=== PATIENT | male | born 1930 | race Caucasian/White ===

== ENCOUNTER 2019-09-30 11:00 | Emergency (ER) | payer OTHER ==
[2019-09-30] MEDS ORDERED: TETANUS & DIPHTHERIA TOX,ADULT 0.5 ML VIAL ONE (12:04)
[2019-09-30] MEDS ORDERED: HYDROCODONE/APAP 5/325 MG TAB ONE (12:04)
[2019-09-30] MEDS ORDERED: LIDOCAINE 1% 20 ML MDV ONE (13:14)
--- NOTE | 2019-09-30 13:14 | RAD REPORT ---
EXAM DESCRIPTION: RAD - Knee Left 3 View - 09/30/2019 12:36 pm CLINICAL HISTORY: Left knee pain status post injury FINDINGS: No fracture or dislocation is seen. Bones are osteoporotic. Anterior laceration. Small densities anterior to patella may represent foreign bodies
--- NOTE | 2019-09-30 15:04 | ER ---
Nurse's Notes [facility] Name: Lauri Rajan Age: 88 yrs Sex: Male : 1930 Arrival Date: 09/30/2019 Time: 11:03 Bed 19 Private MD: Diagnosis: Laceration of the knee Presentation: 09/29 11:19 Chief complaint: Patient states: I went to urgent care and they told me it was down to tw2 the bone so I had to come here, a limb hit my saw and then shoved the saw into my LEFT knee, it happened about an 1.5 to 2 hours ago. Coronavirus screen: Client denies travel out of the [place] in the last 14 days. Coronavirus screen: At this time, the client does not indicate any symptoms associated with coronavirus-19. Ebola Screen: Patient denies travel to an Ebola-affected area in the 21 days before illness onset. Complicating Factors: There are no complicating factors for this patient. Initial Sepsis Screen: Does the patient meet any 2 criteria? No. Patient's initial sepsis screen is negative. Does the patient have a suspected source of infection? No. Patient's initial sepsis screen is negative. Risk Assessment: Do you want to hurt yourself or someone else? Patient reports no desire to harm self or others. Onset of symptoms was September 30, 2019 at 09:30. 11:19 Method Of Arrival: Ambulatory tw2 11:19 Acuity: JACQUE 4 tw2 Triage Assessment: 11:24 General: Appears in no apparent distress. obese, well groomed, Behavior is calm, tw2 cooperative, appropriate for age. Pain: Complains of pain in left leg. Musculoskeletal: Circulation, motion, and sensation intact. Range of motion: intact in all extremities. Injury Description: Laceration sustained to left knee is clean, 0.5 to 2.5 cm long, bleeding moderately. Historical: - Allergies: 11:24 No Known Allergies; tw2 - Home Meds: 11:24 amlodipine 10 mg tab 1 tab once daily [Active]; omeprazole 40 mg Oral cpDR 1 cap once tw2 daily [Active]; - PMHx: 11:24 Hypertension; tw2 - PSHx: 11:24 Tonsillectomy; Appendectomy; tw2 - Immunization history:: Last tetanus immunization: unknown. - Social history:: Smoking status: Patient denies any tobacco usage or history of. Screenin:31 Abuse screen: Denies threats or abuse. Nutritional screening: No deficits noted. tw2 Tuberculosis screening: No symptoms or risk factors identified. Fall Risk None identified. Assessment: 11:10 General: Appears in no apparent distress. well groomed, Behavior is calm, cooperative, tw2 appropriate for age. Neuro: Level of Consciousness is awake, alert, obeys commands, Oriented to person, place, time, situation. Cardiovascular: Patient's skin is warm and dry. Respiratory: Airway is patent Respiratory effort is even, unlabored, Respiratory pattern is regular, symmetrical. GI: No signs and/or symptoms were reported involving the gastrointestinal system. : No signs and/or symptoms were reported regarding the genitourinary system. EENT: No signs and/or symptoms were reported regarding the EENT system. Derm: No signs and/or symptoms reported regarding the dermatologic system. Musculoskeletal: Range of motion: intact in all extremities. Injury Description:. 11:25 Reassessment: provider at bedside at this time. Injury Description: Laceration tw2 sustained to left knee. 12:08 Reassessment: Patient appears in no apparent distress at this time. No changes from tw2 previously documented assessment. Patient and/or family updated on plan of care and expected duration. Pain level reassessed. Patient is alert, oriented x 3, equal unlabored respirations, skin warm/dry/pink. 13:10 Reassessment: Patient appears in no apparent distress at this time. No changes from tw2 previously documented assessment. Patient and/or family updated on plan of care and expected duration. Pain level reassessed. Patient is alert, oriented x 3, equal unlabored respirations, skin warm/dry/pink. 14:03 Reassessment: Patient appears in no apparent distress at this time. No changes from tw2 previously documented assessment. Patient and/or family updated on plan of care and expected duration. Pain level reassessed. Patient is alert, oriented x 3, equal unlabored respirations, skin warm/dry/pink. 14:24 Reassessment: provider at bedside at this time. tw2 15:26 Reassessment: Patient appears in no apparent distress at this time. No changes from tw2 previously documented assessment. Patient and/or family updated on plan of care and expected duration. Pain level reassessed. Patient is alert, oriented x 3, equal unlabored respirations, skin warm/dry/pink. Vital Signs: 11:19 BP 142 / 66; Pulse 63; Resp 17; Temp 98.0(O); Pulse Ox 97% on R/A; Weight 78.02 kg (R); tw2 Height 5 ft. 11 in. (180.34 cm); Pain 1/10; 12:08 BP 123 / 54; Pulse 63; Resp 17; Pulse Ox 95% on R/A; tw2 13:10 BP 117 / 56; Pulse 62; Resp 17; Pulse Ox 96% on R/A; tw2 14:03 BP 118 / 52; Pulse 60; Resp 17; Pulse Ox 95% on R/A; tw2 15:25 BP 131 / 62; Pulse 64; Resp 17; Pulse Ox 98% on R/A; tw2 11:19 Body Mass Index 23.99 (78.02 kg, 180.34 cm) tw2 ED Course: 11:03 Patient arrived in ED. ds1 11:08 Javier May PA is PHCP. jmm 11:08 Lupillo Hager MD is Attending Physician. jmm 11:08 Bed in low position. Call light in reach. tw2 11:12 Lona Bonner, SAMANTHA is Primary Nurse. tw2 11:23 Triage completed. tw2 11:25 Arm band placed on. tw2 12:08 Pulse ox on. NIBP on. Warm blanket given. tw2 12:36 Knee Left 3 View XRAY In Process Unspecified. EDMS 15:21 Gucci Andres MD is Referral Physician. jmm 15:26 No provider procedures requiring assistance completed. Patient did not have IV access tw2 during this emergency room visit. Dressings: ABD pad X 1; left knee 4X4s with cling and tape to secure, CMS intact, knee immobilizer paced, pt tolerated well, cms intact. Administered Medications: 12:00 Drug: Tetanus-Diphtheria Toxoid Adult 0.5 ml {Clinical Informatics Manager: [employer]. Exp: tw04/16/2022. Lot #: [id number]. } Route: IM; Site: left deltoid; 13:09 Follow up: Response: No adverse reaction tw2 12:00 Drug: [place] 5 mg-325 mg 1 tabs Route: PO; tw2 13:14 Follow up: Response: No adverse reaction; Pain is decreased; RASS: Alert and Calm (0) tw2 14:25 Drug: Lidocaine (1 %) 20 ml {Note: by ADRIEN Paige.} Volume: 20 ml; Route: Infiltration; tw2 15:10 Drug: Bactrim (160 mg-800 mg (DS) 1 tablet Route: PO; tw2 15:28 Follow up: Response: No adverse reaction tw2 15:10 Drug: Augmentin 875 mg Route: PO; tw2 15:27 Follow up: Response: No adverse reaction tw2 Outcome: 15:03 Discharge ordered by MD. [facility] 15: Discharged to home via ambulance. tw2 15: Condition: stable 15:29 Discharge instructions given to patient, Instructed on discharge instructions, follow up and referral plans. no drinking with medication, no driving heavy equipment, medication usage, safety practices, wound care, knee immoblizer and cms checks Demonstrated understanding of instructions, follow-up care, medications, Prescriptions given X 3. 15:29 Patient left the ED. tw2 Signatures: Dispatcher [employer] EDMS Javier May PA PA jmm Sanford, Demi ds1 Lona Bonner RN RN tw2 Corrections: (The following items were deleted from the chart) 11:31 11:19 Chief complaint: Patient states: I went to urgent care and they told me it was tw2 down to the bone so I had to come here, a limb hit my saw and then shoved into my LEFT knee, it happened about an 1.5 to 2 hours ago. tw2 14:03 Reassessment: Patient appears in no apparent distress at this time. No changes tw2 from previously documented assessment. Patient and/or family updated on plan of care and expected duration. Pain level reassessed. Patient is alert, oriented x 3, equal unlabored respirations, skin warm/dry/pink. tw2
--- NOTE | 2019-09-30 15:04 | EDPHYS ---
Physician Documentation [facility] Name: Lauri Rajan Age: 88 yrs Sex: Male : 1930 Arrival Date: 09/30/2019 Time: 11:03 Bed 19 Private MD: ED Physician Lupillo Hager HPI: 09/29 11:28 This 88 yrs old Male presents to ER via Ambulatory with complaints of jmm Laceration - Knee. 11:28 The patient presents with an injury, a laceration. Onset: The symptoms/episode jmm began/occurred acutely, this morning. Modifying factors: The symptoms are alleviated by nothing. the symptoms are aggravated by nothing. This is an 88 year old male with a history of htn that presents to the ED with complaints of left knee laceration. Patient states a tree limb fell on his chainsaw which then hit his left knee. Patient was seen at and advised to go to the ED for further evaluation. . Historical: - Allergies: 11:24 No Known Allergies; tw2 - Home Meds: 11:24 amlodipine 10 mg tab 1 tab once daily [Active]; omeprazole 40 mg Oral cpDR 1 cap once tw2 daily [Active]; - PMHx: 11:24 Hypertension; tw2 - PSHx: 11:24 Tonsillectomy; Appendectomy; tw2 - Immunization history:: Last tetanus immunization: unknown. - Social history:: Smoking status: Patient denies any tobacco usage or history of. ROS: 11:28 Constitutional: Negative for fever, chills, and weight loss, Cardiovascular: Negative jmm for chest pain, palpitations, and edema, Respiratory: Negative for shortness of breath, cough, wheezing, and pleuritic chest pain. 11:28 MS/extremity: Positive for injury or acute deformity, laceration. 11:28 All other systems are negative. Exam: 11:28 Constitutional: This is a well developed, well nourished patient who is awake, alert, jmm and in no acute distress. Head/Face: atraumatic. Eyes: EOMI, no conjunctival erythema appreciated ENT: Moist Mucus Membranes Neck: Trachea midline, Supple Chest/axilla: Normal chest wall appearance and motion. Cardiovascular: Regular rate and rhythm. No edema appreciated Respiratory: Normal respirations, no respiratory distress appreciated Abdomen/GI: Non distended, soft Back: Normal ROM 11:28 Musculoskeletal/extremity: FROM appreciated to the left knee, compartments are soft, NVI. 11:28 Skin: 6 cm laceration noted to the anterior knee, joint capsule is visualized. 11:28 Neuro: Orientation: is normal, Mentation: is normal, Memory: is normal. Vital Signs: 11:19 BP 142 / 66; Pulse 63; Resp 17; Temp 98.0(O); Pulse Ox 97% on R/A; Weight 78.02 kg (R); tw2 Height 5 ft. 11 in. (180.34 cm); Pain 1/10; 12:08 BP 123 / 54; Pulse 63; Resp 17; Pulse Ox 95% on R/A; tw2 13:10 BP 117 / 56; Pulse 62; Resp 17; Pulse Ox 96% on R/A; tw2 14:03 BP 118 / 52; Pulse 60; Resp 17; Pulse Ox 95% on R/A; tw2 15:25 BP 131 / 62; Pulse 64; Resp 17; Pulse Ox 98% on R/A; tw2 11:19 Body Mass Index 23.99 (78.02 kg, 180.34 cm) tw2 Laceration: 15:00 Wound Repair of 6cm ( 2.4in ) subcutaneous laceration to left knee. Distal jmm neuro/vascular/tendon intact. Anesthesia: Local anesthetic administered with 10 mls of 1% lidocaine. Wound prep: Extensive cleansing with betadine by co, Copious irrigation. Skin closed with 4 4-0 Prolene using simple sutures and sterile technique. Patient tolerated well. MDM: 11:28 Patient medically screened. [facility] 15:01 Data reviewed: vital signs, nurses notes. Counseling: I had a detailed discussion with ambika the patient and/or guardian regarding: the historical points, exam findings, and any diagnostic results supporting the discharge/admit diagnosis, lab results, radiology results, the need for outpatient follow up, to return to the emergency department if symptoms worsen or persist or if there are any questions or concerns that arise at home. ED course: The wound was copiously irrigated. I discussed xray and PE findings with Dr. Orozco whom advised to close up the wound and put patient in a knee immobilizer. Will follow up with the patient tomorrow. Patient is otherwise given strict return precautions. Patient understood and agrees with the plan of care. . 09/29 11:39 Order name: Knee Left 3 View XRAY; Complete Time: 13:36 [facility] 09/29 13:09 Order name: Dressing - Wound; Complete Time: 15:06 tw2 09/29 13:09 Order name: Gloves, Sterile; Complete Time: 13:09 tw2 09/29 13:09 Order name: Setup Suture Tray; Complete Time: 13:09 tw2 09/29 15:05 Order name: Knee Immobilizer; Complete Time: 15:20 [facility] Administered Medications: 12:00 Drug: Tetanus-Diphtheria Toxoid Adult 0.5 ml {Day Worker: [employer]. Exp: 04/16/2022. Lot #: [id number]. } Route: IM; Site: left deltoid; 13:09 Follow up: Response: No adverse reaction tw2 12:00 Drug: [place] 5 mg-325 mg 1 tabs Route: PO; tw2 13:14 Follow up: Response: No adverse reaction; Pain is decreased; RASS: Alert and Calm (0) tw2 14:25 Drug: Lidocaine (1 %) 20 ml {Note: by PA. Grecia} Volume: 20 ml; Route: Infiltration; tw2 15:10 Drug: Bactrim (160 mg-800 mg (DS) 1 tablet Route: PO; tw2 15:28 Follow up: Response: No adverse reaction tw2 15:10 Drug: Augmentin 875 mg Route: PO; tw2 15:27 Follow up: Response: No adverse reaction tw2 Disposition: 09/30 08:05 Co-signature as Attending Physician, Lupillo Hager MD I agree with the assessment and kdr plan of care. Disposition: 09/30/19 15:03 Discharged to Home. Impression: Laceration of the knee. - Condition is Stable. - Discharge Instructions: Laceration Care, Adult. - Prescriptions for Ultracet 37.5- 325 mg Oral Tablet - take 1 tablet by ORAL route every 6 hours - for up to 5 days; do not exceed 8 tablets per day.; 20 tablet. Doxycycline Hyclate 100 mg Oral Tablet - take 1 tablet by ORAL route every 12 hours; 20 tablet. Bactrim DS 800- 160 mg Oral Tablet - take 1 tablet by ORAL route every 12 hours for 10 days; 20 tablet. - Medication Reconciliation Form, Thank You Letter, Antibiotic Education, Prescription Opioid Use form. - Follow up: Private Physician; When: Tomorrow; Reason: Recheck today's complaints, Continuance of care, Re-evaluation by your physician. Follow up: Gucci Orozco MD; When: Tomorrow; Reason: Recheck today's complaints, Continuance of care, Re-evaluation by your physician. Signatures: Dispatcher [employer] EDMS Lupillo Hager MD MD [facility] Javier May PA PA jmm Smirch, Shelby, RN RN ss Lona Bonner RN RN tw2 Corrections: (The following items were deleted from the chart) 09/29 15:21 15:03 09/30/2019 15:03 Discharged to Home. Impression: Laceration of the knee. [facility] Condition is Stable. Forms are Medication Reconciliation Form, Thank You Letter, Antibiotic Education, Prescription Opioid Use. Follow up: Private Physician; When: Tomorrow; Reason: Recheck today's complaints, Continuance of care, Re-evaluation by your physician. [facility] 15:29 15:21 09/30/2019 15:03 Discharged to Home. Impression: Laceration of the knee. tw2 Condition is Stable. Discharge Instructions: Laceration Care, Adult. Prescriptions for Ultracet 37.5-325 mg Oral Tablet - take 1 tablet by ORAL route every 6 hours - for up to 5 days; do not exceed 8 tablets per day.; 20 tablet, Doxycycline Hyclate 100 mg Oral Tablet - take 1 tablet by ORAL route every 12 hours; 20 tablet, Bactrim DS 800-160 mg Oral Tablet - take 1 tablet by ORAL route every 12 hours for 10 days; 20 tablet. and Forms are Medication Reconciliation Form, Thank You Letter, Antibiotic Education, Prescription Opioid Use. Follow up: Private Physician; When: Tomorrow; Reason: Recheck today's complaints, Continuance of care, Re-evaluation by your physician. Follow up: Gucci Orozco; When: Tomorrow; Reason: Recheck today's complaints, Continuance of care, Re-evaluation by your physician. [facility]
[2019-09-30] MEDS ORDERED: AMOX/K CLAV 875 MG TAB ONE (15:15)
[2019-09-30] MEDS ORDERED: SMZ./TMP. 800/160 MG TABLET ONE (15:15)
[2019-09-30 15:34] VITALS: TEMP 98
[2019-09-30 15:40] VITALS: BP 131/62; O2SAT 98
== END 2019-09-30 15:29 | disposition home or self-care (01) ==
LOC: ER 11:00
PROC: 0JQP0ZZ Repair Left Lower Leg Subcutaneous Tissue and Fascia, Open Approach (ICD-10-PCS; principal; 2019-09-30)
DX: S81.012A Laceration without foreign body, left knee, initial encounter (principal); W29.3XXA Contact with powered garden and outdoor hand tools and machinery, initial encounter; Y93.89 Activity, other specified; Y92.9 Unspecified place or not applicable; Z23 Encounter for immunization; I10 Essential (primary) hypertension
CPT/HCPCS: 90471; 90714; 99284

== ENCOUNTER 2021-09-02 13:03 | Emergency (ER) | payer OTHER ==
[2021-09-02] MEDS ORDERED: LIDOCAINE 1% MPF 5 ML VIAL ONE (13:19)
--- NOTE | 2021-09-02 13:34 | ER ---
Nurse's Notes [facility] Name: Lauri Rajan Age: 89 yrs Sex: Male : 1930 Arrival Date: 09/02/2021 Time: 13:04 Bed 11 Private MD: Amanuel Robles F Diagnosis: Laceration without foreign body of knee Presentation: 09/02 13:10 Chief complaint: Patient states: PATIENT STATED "CUT LEFT KNEE WITH A CHAIN SAW 15 bh1 MINUTES AGO". Coronavirus screen: Vaccine status: Patient reports receiving the 2nd dose of the covid vaccine. Client denies travel out of the [place] in the last 14 days. At this time, the client does not indicate any symptoms associated with coronavirus-19. Ebola Screen: Patient negative for fever greater than or equal to 101.5 degrees Fahrenheit, and additional compatible Ebola Virus Disease symptoms. Complicating Factors: There are no complicating factors for this patient. Initial Sepsis Screen: Does the patient meet any 2 criteria? No. Patient's initial sepsis screen is negative. Does the patient have a suspected source of infection? No. Patient's initial sepsis screen is negative. Risk Assessment: Do you want to hurt yourself or someone else? Patient reports no desire to harm self or others. Onset of symptoms was September 02, 2021. 13:10 Method Of Arrival: Ambulatory [facility] 13:10 Acuity: JACQUE 4 [facility] Triage Assessment: 13:12 General: Appears in no apparent distress. uncomfortable, Behavior is calm, cooperative, [facility] appropriate for age. Pain: Complains of pain in left knee Pain does not radiate. Pain currently is 3 out of 10 on a pain scale. Injury Description: Laceration sustained to left knee is clean, superficial, 2.6 to 7.5 cm long, not bleeding, was sustained less than 30 minutes ago. is bleeding a small amount. Historical: - Allergies: 13:18 No Known Allergies; jg9 - Home Meds: 13:12 amlodipine 10 mg tab 1 tab once daily [Active]; omeprazole 40 mg Oral cpDR 1 cap once bh1 daily [Active]; - PMHx: 13:12 Hypertension; GERD; [facility] - PSHx: 13:12 Appendectomy; Tonsillectomy; PROSTATE FROZEN; [facility] - Immunization history:: Adult Immunizations up to date, Last tetanus immunization: up to date < 5 years ago Pneumococcal vaccine is up to date, Flu vaccine is up to date. - Social history:: Smoking status: unknown. Screenin:18 Abuse screen: Denies threats or abuse. Denies injuries from another. Nutritional jg9 screening: No deficits noted. Tuberculosis screening: No symptoms or risk factors identified. Fall Risk None identified. Assessment: 13:19 Musculoskeletal: laceration to left knee. jg9 Vital Signs: 13:10 BP 145 / 69; Pulse 87; Resp 18; Temp 98.4; Pulse Ox 97% on R/A; Weight 82.55 kg; Height [facility] 5 ft. 11 in. (180.34 cm); Pain 3/10; 13:15 BP 113 / 65; Pulse 57; Resp 10; Pulse Ox 99% on R/A; Pain 2/10; jg9 13:39 BP 120 / 57; Pulse 68; Resp 17 S; Pulse Ox 97% on R/A; Pain 0/10; jg9 13:10 Body Mass Index 25.38 (82.55 kg, 180.34 cm) [facility] ED Course: 13:00 Assist provider with laceration repair Set up tray. Performed by Keila LORA. jg9 13:04 Patient arrived in ED. am2 13:04 Amanuel Robles MD is Private Physician. am2 13:04 [facility]C [facility]. kb 13:04 Davie Newman MD is Attending Physician. kb 13:07 Monica Jerez RN is Primary Nurse. jg9 13:12 Triage completed. [facility] 13:12 Patient has correct armband on for positive identification. Bed in low position. Call mb7 light in reach. Side rails up X 1. Door closed. Noise minimized. 13:18 Wound care: to was. jg9 13:19 Arm band placed on right wrist. jg9 13:40 Wound care: was cleaned with dressed with Patient tolerated well. maddison wrap applied. jg9 13:41 Patient did not have IV access during this emergency room visit. jg9 Administered Medications: 13:20 Drug: Lidocaine (1 %) 1 vials {Note: performed by WESLY Koroma.} Volume: 5 ml; jg9 Route: Infiltration; Site: affected area; 13:20 Follow up: Response: No adverse reaction jg9 Medication: 13:40 VIS not applicable for this client. jg9 Outcome: 13:34 Discharge ordered by . heena 13:40 Condition: stable jg9 13:40 Discharged to home via wheelchair. jg9 13:40 Discharge instructions given to patient, Instructed on discharge instructions, follow up and referral plans. Demonstrated understanding of instructions, follow-up care. 13:45 Patient left the ED. jg9 Signatures: Keila Elena FNP-C FNP-Kelsie Root Mary mb7 Monica Jerez RN RN jg9 Bisi Her RN RN bh1
--- NOTE | 2021-09-02 13:35 | EDPHYS ---
Physician Documentation [facility] Name: Lauri Rajan Age: 89 yrs Sex: Male : 1930 Arrival Date: 09/02/2021 Time: 13:04 Bed 11 Private MD: Amanuel Robles F ED Physician Davie Newman HPI: 09/02 13:54 This 89 yrs old Male presents to ER via Ambulatory with complaints of Laceration To Leg.kb 13:54 The patient has a laceration related to: doing yard work, occurred at home, outdoors, kb and there are no complicating factors. The injury was accidental. The laceration(s) is(are) located on the left knee. Onset: The symptoms/episode began/occurred just prior to arrival. Associated signs and symptoms: The patient has no apparent associated signs or symptoms. The patient has experienced a previous episode. The patient has not recently seen a physician. Pt reports he was trying to cut some limbs with a chain saw and accidentally cut his leg. Historical: - Allergies: 13:18 No Known Allergies; jg9 - Home Meds: 13:12 amlodipine 10 mg tab 1 tab once daily [Active]; omeprazole 40 mg Oral cpDR 1 cap once bh1 daily [Active]; - PMHx: 13:12 Hypertension; GERD; bh1 - PSHx: 13:12 Appendectomy; Tonsillectomy; PROSTATE FROZEN; bh1 - Immunization history:: Adult Immunizations up to date, Last tetanus immunization: up to date < 5 years ago Pneumococcal vaccine is up to date, Flu vaccine is up to date. - Social history:: Smoking status: unknown. ROS: 13:53 Constitutional: Negative for fever, chills, and weight loss. kb 13:53 Skin: Positive for laceration(s), of the left knee. 13:53 All other systems are negative. Exam: 13:54 Constitutional: This is a well developed, well nourished patient who is awake, alert, kb and in no acute distress. Head/Face: Normocephalic, atraumatic. Respiratory: Respirations even and unlabored. No increased work of breathing. Talking in full sentences MS/ Extremity: Pulses equal, no cyanosis. Neurovascular intact. Full, normal range of motion. Neuro: Awake and alert, GCS 15, oriented to person, place, time, and situation. Moves all extremities. Normal gait. Psych: Awake, alert, with orientation to person, place and time. Behavior, mood, and affect are within normal limits. 13:54 Skin: injury, laceration(s), the wound is approximately 5.5 cm(s), of the left knee, that can be described as clean, no foreign body, linear, without bleeding. Vital Signs: 13:10 BP 145 / 69; Pulse 87; Resp 18; Temp 98.4; Pulse Ox 97% on R/A; Weight 82.55 kg; Height bh1 5 ft. 11 in. (180.34 cm); Pain 3/10; 13:15 BP 113 / 65; Pulse 57; Resp 10; Pulse Ox 99% on R/A; Pain 2/10; jg9 13:39 BP 120 / 57; Pulse 68; Resp 17 S; Pulse Ox 97% on R/A; Pain 0/10; jg9 13:10 Body Mass Index 25.38 (82.55 kg, 180.34 cm) bh1 Laceration: 13:33 Wound Repair of 5.5cm ( 2.2in ) subcutaneous laceration to left knee. Linear shaped.. kb Distal neuro/vascular/tendon intact. Anesthesia: Wound infiltrated with 5 mls of 1% lidocaine. Wound prep: Extensive cleansing with hibiclenz by me, Wound irrigation with saline by me. Skin closed with 7 4-0 Prolene using simple sutures and sterile technique. Patient tolerated well. MDM: 13:05 Patient medically screened. kb 13:33 Data reviewed: vital signs, nurses notes. Data interpreted: Pulse oximetry: on room air kb is 99 %. Interpretation: normal. Counseling: I had a detailed discussion with the patient and/or guardian regarding: the historical points, exam findings, and any diagnostic results supporting the discharge/admit diagnosis, the need for outpatient follow up, a family practitioner, to return to the emergency department if symptoms worsen or persist or if there are any questions or concerns that arise at home. 09/02 13:09 Order name: Dressing - Wound; Complete Time: 13:40 kb 09/02 13:09 Order name: Gloves, Sterile; Complete Time: 13:20 kb 09/02 13:09 Order name: Prolene, Sutures; Complete Time: 13:20 kb 09/02 13:09 Order name: Setup Suture Tray; Complete Time: 13:20 kb Administered Medications: 13:20 Drug: Lidocaine (1 %) 1 vials {Note: performed by WESLY Koroma.} Volume: 5 ml; jg9 Route: Infiltration; Site: affected area; 13:20 Follow up: Response: No adverse reaction jg9 Disposition: 18:03 Co-signature as Attending Physician, Davie Newman MD. rn Disposition Summary: 09/02/21 13:34 Discharge Ordered Location: Home kb Condition: Stable kb Diagnosis - Laceration without foreign body of knee kb Followup: kb - With: Emergency Department - When: As needed - Reason: Worsening of condition Followup: kb - With: Private Physician - When: 2 - 3 days - Reason: Recheck today's complaints, Continuance of care, Re-evaluation by your physician Discharge Instructions: - Discharge Summary Sheet kb - Laceration Care, Adult, [id number] kb Forms: - Medication Reconciliation Form kb - Thank You Letter kb - Antibiotic Education kb - Prescription Opioid Use kb Signatures: Keila Elena FNP-C FNP-Davie Dial MD MD rn Gilmore, Jennifer RN RN jg9 Bisi Her RN RN bh1
[2021-09-02 13:50] VITALS: TEMP 98.4
[2021-09-02 13:53] VITALS: BP 120/57; O2SAT 97
== END 2021-09-02 13:45 | disposition home or self-care (01) ==
LOC: ER 13:03
PROC: 0JQP0ZZ Repair Left Lower Leg Subcutaneous Tissue and Fascia, Open Approach (ICD-10-PCS; principal; 2021-09-02)
DX: S81.012A Laceration without foreign body, left knee, initial encounter (principal); W29.3XXA Contact with powered garden and outdoor hand tools and machinery, initial encounter; I10 Essential (primary) hypertension; K21.9 Gastro-esophageal reflux disease without esophagitis
CPT/HCPCS: 99284